=== PATIENT | male | born 1940 | race Caucasian/White ===

== ENCOUNTER 2019-11-11 23:58 | Emergency (ER) | payer MEDICAID ==
[~2019-11-11] VITALS: Ht 172.7 cm; Wt 77.6 kg
[2019-11-12 00:07] VITALS: Ht 172.7 cm; Wt 77.6 kg
[2019-11-12 02:56] VITALS: BP 131/68
== END 2019-11-12 02:57 | disposition home or self-care (01) ==
LOC: ED 23:58
DX: E11.40 Type 2 diabetes mellitus with diabetic neuropathy, unspecified (principal)
CPT/HCPCS: J1885; Q0092